=== PATIENT | female | born 1990 | race African-American/Black ===

== ENCOUNTER 2020-05-23 09:13 | Observation (INO) | payer MEDICAID ==
[~2020-05-23] VITALS: Ht 160 cm; Wt 97.5 kg
[2020-05-23 10:12] LABS: CLARITY URINE CLEAR (CLEAR); COLOR URINE YELLOW (YELLOW); KETONES URINE NEGATIVE (NEGATIVE); LEUKOCYTE ESTERASE URINE TRACE (NEGATIVE); NITRITE URINE NEGATIVE (NEGATIVE); OCCULT BLOOD URINE 1+ (NEGATIVE); PROTEIN URINE 1+ (NEGATIVE); SPECIFIC GRAVITY URINE 1.013 (1.005-1.030); UROBILINOGEN URINE 0.2 E.U./dL (0.2-1.0)
== END 2020-05-23 12:00 | disposition home or self-care (01) ==
LOC: 8 EST LDRP 09:13
PROVIDERS: ADMIT Obstetrics & Gynecology; ATTEND Obstetrics & Gynecology
DX: O23.43 Unspecified infection of urinary tract in pregnancy, third trimester (principal); Z3A.38 38 weeks gestation of pregnancy
CPT/HCPCS: 81003; 99281; G0378